=== PATIENT | female | born 1985 | race Caucasian/White ===

== ENCOUNTER 2020-12-30 15:28 | Emergency (ER) | payer OTHER, SELFPAY ==
[2020-12-30 15:39] VITALS: BP 162/93; PULSE 94; RESP 16; TEMP 37.6; O2SAT 100
--- NOTE | 2020-12-30 15:43 | ED.SKABFB ---
HPI - Skin/Abscess/Foreign Bdy General Chief complaint: Skin/Abscess/Foreign Body Stated complaint: Insect Bite Time Seen by Provider: 12/30/20 15:40 Source: patient and RN notes reviewed Mode of arrival: ambulatory Limitations: no limitations History of Present Illness HPI narrative: 35-year-old female presents with concern for insect bite and abscess to her right wrist. Reports she noticed the area yesterday, it worsened in size over the last several hours. She reports tenderness, redness, warmth. She denies trouble breathing, swollen lips, swollen tongue. She denies body aches, chills sweats, fever. MD complaint: insect bite/sting Related Data Home Medications Medication Instructions Recorded Confirmed dorzolamide-timolol [Cosopt] 1 drp EACH EYE BID 12/30/20 12/30/20 Allergies Allergy/AdvReac Type Severity Reaction Status Date / Time No Known Allergies Allergy Verified 12/30/20 15:49 Review of Systems Review of Systems: CONSTITUTIONAL: Denies malaise, chills, sweats, or fever. CARDIOVASCULAR: Denies chest pain, palpitations, or edema. RESPIRATORY: Denies cough or dyspnea. GASTROINTESTINAL: Denies abdominal pain, nausea, vomiting, diarrhea, SKIN: Reports possible bug bite that is swollen, red on the right wrist MUSCULOSKELETAL: Denies muscle skeletal pain or myalgia. All systems reviewed & are unremarkable except as noted in HPI and below PMFSH Comments At time of signature, agree with nursing past medical, surgical, social and family history. There is no relevant family history pertinent to the presenting complaint Exam Narrative: GENERAL: Well-appearing, well-nourished, and in no acute distress. HEAD: Normocephalic, atraumatic. EYES: PERRLA, conjunctivae clear ENT: Mucous membranes moist. NECK: Supple. No lymphadenopathy CHEST: Clear to auscultation. No respiratory distress. HEART: Regular rate and rhythm. SKIN: Warm, dry. 5 cm raised fluctuant area of erythema with central scab noted to the right wrist NEURO: Alert and oriented x3. PSYCH: Normal mood and affect Course Course Emergency Course: Patient is aware of diagnosis, understands and agrees to treatment plan. Anticipatory guidance given. Patient agrees to follow-up as directed and is aware of reasons to seek care at the emergency department. Portions of this record may have been created with voice recognition software Vital Signs Vital signs: Vital Signs Temperature 99.6 F 12/30/20 15:39 Pulse Rate 94 12/30/20 15:39 Respiratory Rate 16 12/30/20 15:39 Blood Pressure 162/93 H 12/30/20 15:39 Pulse Oximetry 100 12/30/20 15:39 Temperature 99.6 F 12/30/20 15:51 Pulse Rate 94 12/30/20 15:51 Respiratory Rate 16 12/30/20 15:51 Blood Pressure 162/93 H 12/30/20 15:51 Pulse Oximetry 100 12/30/20 15:51 Reviewed. Patient has been instructed to follow up with her primary care provider within the next week regarding her elevated blood pressure today. Procedures Abscess I/D upper extremity: Date of Incision: 12/30/20 Time of Incision: 16:04 Side (if applicable): right Local Anesthetic: lidocaine 1% Amount of anesthesia used (mL): 3 Technique: incised with #11 blade Amount of fluid expressed (mL): 5 Irrigation: Yes Packing used?: plain I&D Results: Pus and Blood MDM - Skin/Abscess/Foreign Bdy MDM Narrative Medical decision making narrative: Verbal consent was obtained. The indication for the procedure was clinical suspicion for an abscess. The region was anesthetized with 1% lidocaine. The most fluctuant portion of the abscess was incised with an 11 blade scalpel. The abscess cavity of explored and evacuated, all loculations were broken up with a curved hemostat. The cavity was then packed with packing material and dressed with a clean gauze dressing. I was present for this entire procedure and there were no complications Differential Diagnosis Differen
[2020-12-30 15:51] VITALS: BP 162/93; PULSE 94; RESP 16; TEMP 37.6; O2SAT 100
[2020-12-30] MEDS: LIDOCAINE, EPINEPHRINE, TETRACAINE VISCOUS SOLN 3 ML TOPICAL (15:59)
== END 2020-12-30 16:55 | disposition home or self-care (01) ==
PROVIDERS: Emergency Provider Nurse Practitioner
DX: L02.413 Cutaneous abscess of right upper limb (principal); H40.9 Unspecified glaucoma
CPT/HCPCS: 10061; 87070; 87147; 87181; 87186; 87205; 99203; G0463